=== PATIENT | female | born 1995 | race Caucasian/White ===

== ENCOUNTER 2020-03-23 00:04 | Emergency (ER) | payer SELFPAY ==
--- NOTE | 2020-03-23 00:46 | ER Document Report ---
ED General - General Chief Complaint: Sore Throat Stated Complaint: SORE THROAT Time Seen by Provider: 03/23/20 00:23 - HPI Notes: Patient is a 24-year-old female who presents to the emergency department for evaluation of sore throat, cough, chest heaviness, body aches, chills. All of her symptoms began about 4 hours ago. Her cough is been dry, nonproductive. She has had chills but no ashley fevers to her knowledge. Her chest pain is heavy, she points to her upper bilateral chest area. She states is worsened with movement and pressure, nothing seems to make it better. She states she also complains of some soreness in the inferior rib areas bilaterally. The patient just recently moved here from [place], lived in a county with a significant amount of COVID-19 patients. Past Medical History - General Information source: Patient - Social History Smoking Status: Never Smoker Chew tobacco use (# tins/day): No Frequency of alcohol use: None Drug Abuse: None Family History: Reviewed & Not Pertinent Patient has suicidal ideation: No Patient has homicidal ideation: No Surgical Hx: Negative Review of Systems - Review of Systems Constitutional: See HPI EENT: See HPI Cardiovascular: See HPI Respiratory: See HPI -: Yes All other systems reviewed and negative Physical Exam - Vital signs Vitals: Temp 98.8 F 03/23/20 00:13 - Notes Notes: Vital signs reviewed, please refer to chart. Head is normocephalic, atraumatic. Pupils equal round, reactive to light. Oral mucosa is moist. Pharynx is mildly erythematous. Patient has 2+ tonsils, but no exudate noted. No anterior cervical adenopathy. Neck is supple without meningismus. Heart is regular rate and rhythm. Lungs are clear to auscultation bilaterally. Chest wall excursion is equal bilaterally, chest wall is tender to palpation. No subcutaneous emphysema. Abdomen is soft, nontender, normoactive bowel sounds throughout. Extremities without cyanosis, clubbing. Posterior calves are nontender. Peripheral pulses are equal. Skin is warm and dry. Patient is awake, alert, neurological exam is nonfocal. Course - Re-evaluation Re-evalutation: 03/23/20 00:45 Patient presents to the emergency department for evaluation. She had strep swab, influenza swab, chest x-ray ordered. Because of this patient's former residence in an area high risk for COVID, testing will be performed. The patient was notified that we do not have rapid testing available at this facility, and she will be quarantined for the next 14 days. She voiced understanding. Otherwise, awaiting influenza and strep screen results. Positives on either of these tests will not negate the need for coronavirus testing. 03/23/20 01:26 Patient's strep screen is positive. She opted to be treated with penicillin. 1,200,000 units of penicillin G were ordered to be administered IM. Patient is still high risk for COVID, told to self quarantine for 10 to 14 days, test is pending. She is to follow-up with primary care next week, return to the ER with worsening or new concerning symptoms of any sort. - Vital Signs Vital signs: Temp Pulse Resp BP Pulse Ox 98.8 F 105 H 16 144/82 H 96 03/23/20 00:31 03/23/20 00:31 03/23/20 00:31 03/23/20 00:31 03/23/20 00:31 Discharge - Discharge Clinical Impression: Strep pharyngitis, Chest wall pain Condition: Stable Disposition: HOME, SELF-CARE Instructions: Chest Wall Pain ([facility]), Strep Throat ([facility]), Upper Respiratory Illness ([facility]) Additional Instructions: Your strep screen was positive. You were treated with penicillin, meaning you will not require further antibiotics at home. You also have been tested for COVID-19. Please quarantine for the next 14 days. You will be contacted if your results are positive. Tylenol or ibuprofen as needed for pain, body aches, chills. Return to the emergency department with worsening or new concerning symptoms of any sort. Otherwise, follow-up with your primary care provider this week.
[2020-03-23 00:52] LABS: A TYPE INFLUENZA AG NEGATIVE (NEGATIVE); B INFLUENZA AG NEGATIVE (NEGATIVE)
[2020-03-23] MEDS ORDERED: PENICILLIN G BENZATHINE 1.2 MILLION UNIT/2 ML DISP.SYRIN IM ONE (01:25)
--- NOTE | 2020-03-23 01:29 | RADIOLOGY REPORT (SQ) ---
EXAM DESCRIPTION: XR CHEST 1 VIEW COMPLETED DATE/TME: 03/23/2020 00:45 CLINICAL HISTORY: 24 years, Female, cough, chills COMPARISON: None. NUMBER OF VIEWS: 1 TECHNIQUE: Portable chest LIMITATIONS: None. FINDINGS: The heart size is normal. Lungs are clear. No pneumothorax IMPRESSION: Negative chest copyright 2011 [employer] All Rights Reserved
[2020-03-23 01:55] VITALS: BP 124/56
== END 2020-03-23 02:37 | disposition home or self-care (01) ==
LOC: ER 00:04
DX: J02.0 Streptococcal pharyngitis (principal); R07.89 Other chest pain; R05 Cough; R68.83 Chills (without fever); Z20.828 Contact with and (suspected) exposure to other viral communicable diseases
CPT/HCPCS: 99283; 96372; 87880; 87635; 81025; 87804; 71045; J0561